=== PATIENT | male | born 1980 | race Caucasian/White ===

== ENCOUNTER 2017-03-15 19:56 | Emergency (ER) | payer SELFPAY ==
[~2017-03-15] VITALS: Ht 185.4 cm; Wt 72.6 kg
[2017-03-15 20:06] VITALS: BP 114/81
[2017-03-15] MEDS ORDERED: FLUORESCEIN SODIUM OPHTH 1 EA STRIP ONE (20:22)
[2017-03-15] MEDS ORDERED: TETRACAINE HCL/PF 0.5% UD 2 ML BOTTLE ONE (20:22)
[2017-03-15] MEDS ORDERED: FLUORESCEIN SODIUM OPHTH 1 EA STRIP OP ONE (20:30)
[2017-03-15] MEDS ORDERED: TETRACAINE HCL/PF 0.5% UD 2 ML BOTTLE OP ONE (20:30)
== END 2017-03-15 20:47 | disposition home or self-care (01) ==
LOC: ER 19:59
DX: T15.02XA Foreign body in cornea, left eye, initial encounter (principal); X58.XXXA Exposure to other specified factors, initial encounter; Y93.89 Activity, other specified; Y92.89 Other specified places as the place of occurrence of the external cause; Y99.8 Other external cause status
CPT/HCPCS: 65220; 99284; A4606; Z7610

== ENCOUNTER 2018-06-11 12:15 | Emergency (ER) | payer OTHER ==
[~2018-06-11] VITALS: Ht 185.4 cm; Wt 70.8 kg
[2018-06-11 12:23] VITALS: BP 126/71
== END 2018-06-11 13:11 | disposition home or self-care (01) ==
LOC: ER 12:19
DX: H01.004 Unspecified blepharitis left upper eyelid (principal)
CPT/HCPCS: 99283; A4606